=== PATIENT | male | born 1995 | race Caucasian/White ===

== ENCOUNTER 2018-03-06 14:31 | Emergency (ER) | payer OTHER | END 2018-03-06 15:55 | disposition home or self-care (01) | LOC: FTE 15:55 | DX: S50.362A Insect bite (nonvenomous) of left elbow, initial encounter (principal); F17.210 Nicotine dependence, cigarettes, uncomplicated; W57.XXXA Bitten or stung by nonvenomous insect and other nonvenomous arthropods, initial encounter; Y92.9 Unspecified place or not applicable | CPT/HCPCS: 99283 ==